=== PATIENT | female | born 1990 | race Caucasian/White ===

== ENCOUNTER 2018-03-07 07:24 | Day surgery (SDC) | payer OTHER, SELFPAY ==
[2018-02-16 14:49] VITALS: BMI 18.3
[2018-03-07 07:44] VITALS: BP 104/62; PULSE 57; RESP 16; TEMP 36.9; O2SAT 100; BMI 17.9
[2018-03-07 07:45] LABS: Internal QC Validated? YES +Cl - CLEAR BKGD; Pregnancy, Urine Negative Negative
--- NOTE | 2018-03-07 08:30 | COLBX_PTH ---
PATIENT: SHELBY REID LOC: EN U#:[id number] AGE/SX: 27/F ROOM: RE03/07/[address]: Dr. Matty Collazo MD : 1990 BED: DIS: 03/07/2018 SPEC #: [id number] RECD: 03/07/18 10:28 STATUS: HUNG AYAAN #: [id number] CURT: 03/07/18 08:[address]: Matty Collazo DEPT: SURGICAL PATHOLOGY RECD BY: Jeff Colon ENTERED: 03/07/18 11:16 SP TYPE: COLON BX OTHR DR: Dr. Fabiola Washington MD Tissues: A - Duodenum, NOS B - Gastric mucous membrane C - Ileum, NOS D - COLON BIOPSY Procedures: Surgery Specimen Level IV HEADER OPERATION: Colonoscopy, [place] PRE-OP DIAGNOSIS: Abdominal pain; abdominal bloating, cramping TISSUE SUBMITTED: A - Duodenal biopsy, B - Antral biopsy for H. pylori and pathology, C - Terminal ileum biopsy, D - Random colon biopsies MICROSCOPIC DIAGNOSIS A. Duodenum, biopsy: No pathologic diagnosis. B. Gastric antrum, biopsy: Mild chronic gastritis. See comment. C. Terminal ileum, biopsy: Prominent benign lymphoid aggregates. No evidence enteritis. See comment. D. Colon, random biopsy: Focal acute colitis. See microscopic description. AM:maria luisa 03/08/18 COMMENT B. The results of immunohistochemistry for Helicobacter pylori will be reported separately ([id number]). C. Immunohistochemistry ([id number]) supports the above diagnosis and reveals the lymphoid aggregates to be polytypic. MICROSCOPIC DESCRIPTION Slides are reviewed. D. Sections show rare neutrophils and glandular crypts. There is no glandular distortion present. The lamina propria is not expanded by inflammatory cells. No ulcers or granulomas are identified. Clinical correlation is suggested. GROSS DESCRIPTION A - Received in fixative is one container labeled with the patient's name and designated duodenum biopsy. The specimen consists of one irregular fragment of light boyle soft tissue that measures 0.7 x 0.2 x 0.1 cm. The specimen is totally submitted in one cassette. B - Received in fixative is one container labeled with the patient's name and designated antral biopsy. The specimen consists of one irregular fragment of light boyle soft tissue that measures 0.3 x 0.2 x 0.1 cm. The specimen is totally submitted in one cassette. C - Received in fixative is one container labeled with the patient's name and designated terminal ileum biopsy. The specimen consists of two irregular fragments of light boyle soft tissue that in aggregate measure 0.2 x 0.2 x 0.1 cm. The specimen is totally submitted in one cassette. D - Received in fixative is one container labeled with the patient's name and designated random colon biopsy. The specimen consists of multiple irregular fragments of light boyle soft tissue that in aggregate measure 1 x 1 x 0.1 cm. The specimen is totally submitted in one cassette. / AM:maria ulisa 03/07/18 TC:2 CPT: 19126 x4
--- NOTE | 2018-03-07 08:30 | IMM_PTH ---
PATIENT: SHELBY REID LOC: EN U#:[id number] AGE/SX: 27/F ROOM: RE03/07/[address]: Dr. Matty Collazo MD : 1990 BED: DIS: 03/07/2018 SPEC #: [id number] RECD: 03/08/18 10:07 STATUS: HUNG REQ #: [id number] CURT: 03/07/18 08:[address]: Matty Collazo DEPT: IMMUNOHISTOCHEMISTRY RECD BY: Narda Ferguson ENTERED: 03/08/18 10:08 SP TYPE: IMMUNO OTHR DR: Dr. Fabiola Washington MD Tissues: B - Stomach, NOS C - Ileum, NOS Procedures: H Pylori (initial) CD138 (add) CD20 (add) CD43 (add) CD45 (add) CD5 (add) CD79A (add) KI-67 (add) CD3 (initial) PHYSICIAN [facility] INSTITUTION [address] [address] SPECIMEN INFORMATION: Tissue Source: B - Antral biopsy, C - Terminal ileum biopsy Clinical Info: Abdominal pain, bloating, cramping Specimen Number: [id number] B & C CPT code: 48832 x2, 06090 x7 METHODOLOGY: Deparaffinized sections of prefer/formalin-fixed tissue or PAP/DQ stained slides are incubated with monoclonal/polyclonal antibodies/oligonucleotide probes. Localization is made via biotin free immunoperoxidase method. Appropriate controls are performed and reacted as expected. Results on target cell population are indicated in the following table: RESULTS: ANTIBODY / CLONE RESULT Block B H Pylori (polyclonal) negative Block C CD3 (PS1) positive CD5 (SP10) positive CD20 (L26) positive CD43 (L60) positive CD45 (RP2/18) positive CD79a (11E3) positive CD138 (B-A38) positive Ki-67 (30-9) negative These tests were developed and their performance characteristics determined by [facility]. They may not have been cleared or approved by the U.S. Food and Drug Administration. The FDA has determined that such clearance or approval is not necessary. INTERPRETATION: B. Antral biopsy: Negative for Helicobacter pylori organisms. C. Terminal ileum biopsy: Polytypic (benign) lymphoid aggregates. AM: henrique 03/09/18
[2018-03-07 08:55] VITALS: BP 104/62; BP 97/62; PULSE 88; RESP 16; TEMP 36.4; O2SAT 100
--- NOTE | 2018-03-07 08:59 | OP.ENDO_ITS ---
Patient Name: Florencia Roberts Procedure Date: 03/07/2018 8:27 AM Date of : 1990 Age: 27 Procedure: Upper GI endoscopy Indications: Upper abdominal pain, Abdominal distention, Abdominal bloating Providers: Matty Collazo MD Medicines: See the Anesthesia note for documentation of the administered medications Patient Profile: This is a 27 year old female. Refer to note in patient chart for documentation of history and physical. Complications: No immediate complications. Procedure: Pre-Anesthesia Assessment: - Prior to the procedure, a History and Physical was performed, and patient medications and allergies were reviewed. The patient's tolerance of previous anesthesia was also reviewed. The risks and benefits of the procedure and the sedation options and risks were discussed with the patient. All questions were answered, and informed consent was obtained. Prior Anticoagulants: The patient has taken no previous anticoagulant or antiplatelet agents. ASA Grade Assessment: II - A patient with mild systemic disease. After reviewing the risks and benefits, the patient was deemed in satisfactory condition to undergo the procedure. After obtaining informed consent, the endoscope was passed under direct vision. Throughout the procedure, the patient's blood pressure, pulse, and oxygen saturations were monitored continuously. The gastroscope was introduced through the mouth, and advanced to the second part of duodenum. The upper GI endoscopy was accomplished without difficulty. The patient tolerated the procedure well. Scope In: 8:35:33 AM Scope Out: 8:39:20 AM Total Procedure Duration Time 0 hours 3 minutes 47 seconds Findings: The Z-line was regular and was found 40 cm from the incisors. No biopsies or other specimens were collected for this exam. The entire examined stomach was normal. Biopsies were taken with a cold forceps for Helicobacter pylori testing. The examined duodenum was normal. Biopsies for histology were taken with a cold forceps for evaluation of celiac disease. Impression: - Z-line regular, 35 cm from the incisors. No specimens collected. - Normal stomach. Biopsied. - Normal examined duodenum. Biopsied. Recommendation: - Await pathology results. - Repeat upper endoscopy (date not yet determined). - Return to my office in 2 weeks. - Continue present medications. Procedure Code(s): --- Professional --- 18237, Esophagogastroduodenoscopy, flexible, transoral; with biopsy, single or multiple Diagnosis Code(s): --- Professional --- R10.10, Upper abdominal pain, unspecified R14.0, Abdominal distension (gaseous) CPT copyright 2017 [employer]. All rights reserved. The codes documented in this report are preliminary and upon gis developer review may be revised to meet current compliance requirements. MD Matty Cifuentes MD 03/07/2018 8:59:14 AM This report has been signed electronically. Number of Addenda: 0 Note Initiated On: 03/07/2018 8:27 AM
[2018-03-07 09:00] VITALS: BP 104/62; BP 83/64; PULSE 87; RESP 16; O2SAT 100
[2018-03-07 09:05] VITALS: BP 102/77; BP 104/62; PULSE 86; RESP 16; O2SAT 100
--- NOTE | 2018-03-07 09:06 | OP.ENDO_ITS ---
Patient Name: Florencia Roberts Procedure Date: 03/07/2018 8:41 AM Date of : 1990 Age: 27 Procedure: Colonoscopy Indications: Upper abdominal pain, Incidental abdominal distress noted Providers: Matty Collazo MD Medicines: See the Anesthesia note for documentation of the administered medications Patient Profile: This is a 27 year old female. Refer to note in patient chart for documentation of history and physical. Last Colonoscopy: none. The patient's first colonoscopy is today. Complications: No immediate complications. Procedure: Pre-Anesthesia Assessment: - Prior to the procedure, a History and Physical was performed, and patient medications and allergies were reviewed. The patient's tolerance of previous anesthesia was also reviewed. The risks and benefits of the procedure and the sedation options and risks were discussed with the patient. All questions were answered, and informed consent was obtained. Prior Anticoagulants: The patient has taken no previous anticoagulant or antiplatelet agents. ASA Grade Assessment: II - A patient with mild systemic disease. After reviewing the risks and benefits, the patient was deemed in satisfactory condition to undergo the procedure. After I obtained informed consent, the scope was passed under direct vision. Throughout the procedure, the patient's blood pressure, pulse, and oxygen saturations were monitored continuously. The Colonoscope was introduced through the anus and advanced to 3 cm into the ileum. The colonoscopy was performed without difficulty. The patient tolerated the procedure well. The quality of the bowel preparation was good. Scope In: 8:41:51 AM Scope Withdrawal Time 0 hours 7 minutes 28 seconds Scope Out: 8:53:24 AM Total Procedure Duration Time 0 hours 11 minutes 33 seconds Findings: The colon (entire examined portion) appeared normal. Biopsies for histology were taken with a cold forceps from the entire colon for evaluation of microscopic colitis. The terminal ileum appeared normal. Biopsies were taken with a cold forceps for histology. The exam was otherwise without abnormality. Impression: - The entire examined colon is normal. Biopsied. - The examined portion of the ileum was normal. Biopsied. - The examination was otherwise normal. Recommendation: - Discharge patient to home. - Resume previous diet. - Continue present medications. - Await pathology results. - Repeat colonoscopy (date not yet determined) for screening purposes. - Return to my office in 2 weeks. Procedure Code(s): --- Professional --- 15988, Colonoscopy, flexible; with biopsy, single or multiple Diagnosis Code(s): --- Professional --- R10.10, Upper abdominal pain, unspecified CPT copyright 2017 [employer]. All rights reserved. The codes documented in this report are preliminary and upon home health aide review may be revised to meet current compliance requirements. MD Matty Cifuentes MD 03/07/2018 9:05:27 AM This report has been signed electronically. Number of Addenda: 0 Note Initiated On: 03/07/2018 8:41 AM
[2018-03-07 09:10] VITALS: BP 104/62; BP 105/72; PULSE 80; RESP 16; TEMP 36.9; O2SAT 99
[2018-03-07 09:36] VITALS: BP 104/62
== END 2018-03-07 09:41 | disposition home or self-care (01) ==
LOC: EN 07:24 → AC 07:26
PROVIDERS: Anesthesiology; Family Provider Internal Medicine; PCP Internal Medicine; Referring Provider Surgery; Visit Provider Surgery
PROC: 0DJD8ZZ Inspection of Lower Intestinal Tract, Via Natural or Artificial Opening Endoscopic (ICD-10-PCS; CPT 45378; principal; 2018-03-07 08:25)
DX: K29.50 Unspecified chronic gastritis without bleeding (principal); K52.9 Noninfective gastroenteritis and colitis, unspecified; K63.89 Other specified diseases of intestine; R10.12 Left upper quadrant pain; R10.13 Epigastric pain; R14.0 Abdominal distension (gaseous)
CPT/HCPCS: 43239; 45380; 81025; 88305; 88341; 88342; J7120

== ENCOUNTER → 2020-06-03 16:35 | Outpatient (CLI) | payer OTHER, SELFPAY ==
[2020-06-03 14:28] VITALS: BMI 19.8
== END ==
PROVIDERS: Visit Provider Obstetrics & Gynecology
DX: R30.0 Dysuria (principal)
CPT/HCPCS: 87086

== ENCOUNTER → 2020-06-11 11:25 | Outpatient (CLI) | payer OTHER, SELFPAY ==
[2020-06-03 14:28] VITALS: BMI 19.8
--- NOTE | 2020-06-11 11:27 | US_ITS ---
STUDY: ULTRASOUND OF THE FEMALE PELVIS - COMPLETE REASON FOR EXAM: Female, 29 years old. Polycystic ovary disease. LMP: 04/26/2020. TECHNIQUE: Transabdominal and Transvaginal TECHNICAL QUALITY: Adequate. COMPARISON: None. FINDINGS: The uterus is retroverted and is in a midline position. The uterus measures 8.9 cm x 5.5 cm x 4.4 cm. There is a Nabothian cyst of the cervix. The endometrium measures 8.9 mm in thickness, and is hyperechoic. There is no demonstrated endometrial mass. There is no demonstrated myometrial mass. I.U.D. - The patient does not have an I.U.D. The right ovary is visualized. The right ovary measures 3.9 cm x 3.1 cm x 1.8 cm. A dominant follicle is seen in the right ovary. This measures 1.5 cm x 0.9 cm. There is no visualized right adnexal mass or complex lesion. There is normal arterial and normal venous vascularity. The left ovary is visualized. The left ovary measures 3.8 cm x 2 cm x 2 cm. Multiple small follicles are seen. There is no visualized left adnexal mass or complex lesion. There is normal arterial and normal venous vascularity. There is no fluid in the cul-de-sac. The pre void volume of the bladder was 722 ml. US/Transvaginal Non- IMPRESSION: Dominant follicle is seen in the right ovary. Multiple small follicles are seen in the left ovary. Electronically Signed: Allan Dey MD at 15:01 EDT , Service support ,
--- NOTE | 2020-06-11 11:27 | US_ITS ---
STUDY: ULTRASOUND OF THE FEMALE PELVIS - COMPLETE REASON FOR EXAM: Female, 29 years old. Polycystic ovary disease. LMP: 04/26/2020. TECHNIQUE: Transabdominal and Transvaginal TECHNICAL QUALITY: Adequate. COMPARISON: None. FINDINGS: The uterus is retroverted and is in a midline position. The uterus measures 8.9 cm x 5.5 cm x 4.4 cm. There is a Nabothian cyst of the cervix. The endometrium measures 8.9 mm in thickness, and is hyperechoic. There is no demonstrated endometrial mass. There is no demonstrated myometrial mass. I.U.D. - The patient does not have an I.U.D. The right ovary is visualized. The right ovary measures 3.9 cm x 3.1 cm x 1.8 cm. A dominant follicle is seen in the right ovary. This measures 1.5 cm x 0.9 cm. There is no visualized right adnexal mass or complex lesion. There is normal arterial and normal venous vascularity. The left ovary is visualized. The left ovary measures 3.8 cm x 2 cm x 2 cm. Multiple small follicles are seen. There is no visualized left adnexal mass or complex lesion. There is normal arterial and normal venous vascularity. There is no fluid in the cul-de-sac. The pre void volume of the bladder was 722 ml. US/Pelvic (Non ) IMPRESSION: Dominant follicle is seen in the right ovary. Multiple small follicles are seen in the left ovary. Electronically Signed: Allan Dey MD at 15:01 EDT , Service support ,
== END ==
PROVIDERS: Referring Provider Obstetrics & Gynecology; Visit Provider Obstetrics & Gynecology
DX: E28.2 Polycystic ovarian syndrome (principal)
CPT/HCPCS: 76830; 76856

== ENCOUNTER → 2020-10-21 09:28 | Outpatient (CLI) | payer OTHER, SELFPAY ==
--- NOTE | 2020-10-21 09:34 | BI_ITS ---
MAMMOGRAPHY - BILATERAL DIAGNOSTIC REASON FOR EXAM: Female, 30 years old. One-month history of pain in the upper inner quadrant of the left breast. PERTINENT HISTORY: Non-contributory. TECHNIQUE: Digital bilateral breast otto (3D mammographic acquisition) in the CC and MLO projections. 2-D mediolateral oblique (MLO) and craniocaudad (CC) views of both breasts were obtained. CAD: Full Field Digital Mammography with Computer Added Detection was performed. COMPARISON: None. Baseline examination. FINDINGS: Breast Composition: The breasts are extremely dense, which lowers the sensitivity of mammography. There are no dominant masses or suspicious calcifications. No other significant abnormalities are identified. BI/DIAG MAMM W/CAD, BILAT IMPRESSION: Negative diagnostic mammogram. With the patient''s history of pain in the upper inner quadrant of the left breast, correlation with ultrasound is recommended. ASSESSMENT CATEGORY: BIRADS Category 0: Incomplete. Need additional imaging evaluation. A letter regarding these results will be sent to the patient by the facility within 30 days. Approximately 10% of breast cancers are not detected by mammography. A normal mammogram should not delay biopsy of a clinically suspicious abnormality. Electronically Signed: Allan Dey MD at 11:12 EDT , Service support ,
--- NOTE | 2020-10-21 09:34 | US_ITS ---
STUDY: ULTRASOUND BREAST - LEFT REASON FOR EXAM: Female, 30 years old. Pain in the left breast. TECHNIQUE: Axial and longitudinal images of the LEFT breast were performed with a high resolution ultrasound transducer. # OF IMAGES: 14 COMPARISON: Comparison is made with prior mammogram done earlier today. FINDINGS: LEFT Breast: The upper inner quadrant of the breast was examined by ultrasound. There is dense fibroglandular tissue. No sonographic abnormality is seen. US/Breast Limited Unilateral IMPRESSION: No sonographic abnormality is seen. ASSESSMENT CATEGORY: BIRADS Category 1: Negative. A letter regarding these results will be sent to the patient by the facility within 30 days. Electronically Signed: Allan Dey MD at 11:13 EDT , Service support ,
== END ==
PROVIDERS: Referring Provider Nurse Practitioner Women's Health; Visit Provider Nurse Practitioner Women's Health
DX: N64.4 Mastodynia (principal)
CPT/HCPCS: 76642; 77062; 77066; G0279

== ENCOUNTER → 2022-06-11 | Outpatient (CLI) | payer OTHER, SELFPAY ==
--- NOTE | 2022-06-11 09:27 | BI_ITS ---
MAMMOGRAPHY - BILATERAL DIAGNOSTIC REASON FOR EXAM: Female, 31 years old. One and half week history of a palpable lump lateral aspect of the right breast. PERTINENT HISTORY: Grandmother with breast cancer. TECHNIQUE: Digital bilateral breast otto (3D mammographic acquisition) in the CC and MLO projections. 2-D mediolateral oblique (MLO) and craniocaudad (CC) views of both breasts were obtained. CAD: Full Field Digital Mammography with Computer Added Detection was performed. COMPARISON: Comparison is made with prior study of October 21, 2020. FINDINGS: Breast Composition: The breasts are extremely dense, which lowers the sensitivity of mammography. There is a 1.8 cm x 1.5 cm well-defined nodule in the anterior upper lateral aspect of the right breast corresponding to the palpable abnormality. This also evidence of a 2.4 cm x 2.6 cm lymph node in the left axilla. Correlation with ultrasound is recommended. No other significant abnormalities are identified. BI/DIAG MAMM W/CAD, BILAT IMPRESSION: Prominent lymph node in the left axilla. The palpable lump in the right breast corresponds to a 1.8 cm x 1.5 cm well-defined nodule. Correlation with ultrasound is recommended. ASSESSMENT CATEGORY: BIRADS Category 0: Incomplete. Need additional imaging evaluation. A letter regarding these results will be sent to the patient by the facility within 30 days. Approximately 10% of breast cancers are not detected by mammography. A normal mammogram should not delay biopsy of a clinically suspicious abnormality. Electronically Signed: Allan Dey MD at 10:49 EDT ,
--- NOTE | 2022-06-11 09:27 | US_ITS ---
STUDY: ULTRASOUND BREAST - RIGHT REASON FOR EXAM: Female, 31 years old. Abnormal screening mammogram. TECHNIQUE: Axial and longitudinal images of the RIGHT breast were performed with a high resolution ultrasound transducer. # OF IMAGES: 25 COMPARISON: Comparison is made with prior mammogram done earlier today. FINDINGS: RIGHT Breast: The lateral upper aspect of the right breast was examined with ultrasound. There is dense fibroglandular tissue. No solid or cystic nodule is seen. US/Breast Limited Unilateral IMPRESSION: Unremarkable targeted ultrasound of the right breast. ASSESSMENT CATEGORY: BIRADS Category 1: Negative. A letter regarding these results will be sent to the patient by the facility within 30 days. Electronically Signed: Allan Dey MD at 12:09 EDT ,
--- NOTE | 2022-06-11 10:30 | US_ITS ---
STUDY: ULTRASOUND BREAST - RIGHT REASON FOR EXAM: Female, 31 years old. Abnormal screening mammogram. TECHNIQUE: Axial and longitudinal images of the RIGHT breast were performed with a high resolution ultrasound transducer. # OF IMAGES: 25 COMPARISON: Comparison is made with prior mammogram done earlier today. FINDINGS: RIGHT Breast: The lateral upper aspect of the right breast was examined with ultrasound. There is dense fibroglandular tissue. No solid or cystic nodule is seen. US/Breast Limited Unilateral IMPRESSION: Unremarkable targeted ultrasound of the right breast. ASSESSMENT CATEGORY: BIRADS Category 1: Negative. A letter regarding these results will be sent to the patient by the facility within 30 days. Electronically Signed: Allan Dey MD at 12:09 EDT ,
== END | disposition home or self-care (01) ==
PROVIDERS: Referring Provider Advanced Practice Midwife; Visit Provider Advanced Practice Midwife
DX: N63.10 Unspecified lump in the right breast, unspecified quadrant (principal)
CPT/HCPCS: 76642; 77062; 77066; G0279

== ENCOUNTER → 2022-06-18 | Outpatient (CLI) | payer OTHER, SELFPAY ==
--- NOTE | 2022-06-18 14:40 | FLU_PTH ---
PATIENT: SHELBY REID LOC: [facility] U#:[id number] AGE/SX: 31/F ROOM: RE06/18/[address]: Dr. Ayad Marquez MD : 1990 BED: DIS: 06/18/2022 SPEC #: [id number] RECD: 06/18/22 15:41 STATUS: HUNG AYAAN #: [id number] CURT: 06/18/22 14:[address]: Ayad Marquez DEPT: CYTOLOGY RECD BY: Leila Varner ENTERED: 06/19/22 10:27 SP TYPE: Fluid OTHR DR: No Primary Care Phys Tissues: CYST Procedures: Special Stain Group II Surgery Specimen Level IV Cytospin Fluid HEADER OPERATION: Left axillary aspiration PRE-OP DIAGNOSIS: Left axilla cyst TISSUE SUBMITTED: Left axilla cyst DIAGNOSIS CYTOLOGY Fine needle aspiration, left axilla cyst (cytospin and cell block): Negative for malignant cells. See comment. AM:maria luisa 06/22/2022 COMMENT The specimen contains macrophages consistent with cyst contents. Also present are benign appearing glandular epithelial cells. If a mass is present in this region, a biopsy is recommended. Case has been reviewed in consultation with Dr. Woodall who concurs with the above diagnosis. IDC:[facility] CYTOLOGY STUDY Slides are reviewed. CYTOLOGY GROSS Received is 0.5 ml of red cloudy fluid labeled with the patient's name and and designated per the requisition as left axilla cyst. Submitted for cytology preparation including cell block. / maria luisa 06/19/2022 TC:5 CPT: 01155, 43484
== END | disposition home or self-care (01) ==
LOC: LABSPEC 06-19 10:05
PROVIDERS: Visit Provider Surgery
DX: L02.412 Cutaneous abscess of left axilla (principal)
CPT/HCPCS: 88108; 88304; 88305; 88313

== ENCOUNTER 2023-07-07 09:34 | Outpatient (CLI) | payer OTHER, SELFPAY ==
[2023-07-07 14:52] LABS: Hemoglobin A1c 5.1 % (3.8-5.6)
[2023-07-12 13:07] LABS: Testosterone Free 5.4 pg/mL (0.0-4.2)
[2023-07-12 15:07] LABS: HPV APTIMA, High Risk Negative (Negative)
== END 2023-07-07 23:59 | disposition home or self-care (01) ==
PROVIDERS: Referring Provider Nurse Practitioner Women's Health; Visit Provider Nurse Practitioner Women's Health
DX: Z12.4 Encounter for screening for malignant neoplasm of cervix (principal); E28.2 Polycystic ovarian syndrome; Z13.1 Encounter for screening for diabetes mellitus
CPT/HCPCS: 36415; 82627; 83036; 84402; 87624; 88175; 82626; G0145